=== PATIENT | female | born 2005 | race African-American/Black ===

== ENCOUNTER 2024-04-11 12:56 | Emergency (ER) | payer MEDICAID, OTHER, SELFPAY ==
[2024-04-11 12:56] VITALS: BP 113/74; PULSE 114; RESP 16; TEMP 36.9; O2SAT 100; BMI 21.9
[2024-04-11 13:58] VITALS: BP 109/75; PULSE 64; RESP 15; O2SAT 99
[2024-04-11 14:13] LABS: Amphetamine Urine NEGATIVE (<1000 ng/mL); Barbiturate Urine VISTA NEGATIVE (< 200 ng/mL); Benzodiazepine Urine VISTA NEGATIVE (< 200 ng/mL); Cocaine Urine VISTA NEGATIVE (< 300 ng/mL); Ecstacy Urine VISTA NEGATIVE (< 500 ng/mL); Methadone Urine VISTA NEGATIVE (< 300 ng/mL); PCP Urine VISTA NEGATIVE (< 25 ng/mL); THC Urine VISTA POSITIVE (< 50 ng/mL); Vista UDS pH Range 6
[2024-04-11 14:19] LABS: Alcohol, Blood (Medical)-Serum < 3.0 mg/dL
--- NOTE | 2024-04-11 14:22 | EX.ED.VIS.PS ---
HPI HPI - Psych History of Present Illness Chief Complaint: Suicidal Informant: patient Narrative Narrative: Patient presenting with suicidal thoughts/ideation, she does not have a specific plan but states I was going to go to my dorm and I have things there that I could do. She states the suicidal thoughts have been for the last month at least. She used to be on antidepressants, but she discontinued those 1 or 2 months ago because she thought they were making her feel nauseated. She is not going to therapy. She states she is very stressed, she feels like she has no free time, no ability to relax, due to school/college and work. [facility], and that is the reason she was referred here to the ER for this. PFSH PFSH Allergy/AdvReac Type Severity Reaction Status Date / Time No Known Allergies Allergy Verified 04/11/24 13:02 Social History Smoking Status: Never smoker ROS ROS ED Constitutional Constitutional ED: Denies chills or fever(s) Eyes Eyes: Denies change in vision or diplopia ENT ENT ED: Denies rhinorrhea or sore throat Cardiovascular Cardiovascular: Denies chest pain or palpitations Respiratory/Chest Respiratory/Chest: Denies cough or dyspnea Gastrointestinal Gastrointestinal: Denies abdominal pain, diarrhea, nausea or vomiting Genitourinary Genitourinary ED: Denies dysuria or hematuria Musculoskeletal Musculoskeletal: Denies back pain or neck pain Integumentary Denies abscess or rash Neurologic Neurologic: Denies headache(s), paresthesias or weakness Psychiatric Psychiatric: Reports depression, suicidal ideation and suicidal thoughts; Denies homicidal ideation EXAM Physical Exam Const Vital Signs: 04/11/24 12:56 04/11/24 13:58 Temperature 98.5 F Temperature Source Temporal Pulse Rate 114 H 64 Respiratory Rate 16 15 Blood Pressure 113/74 109/75 Blood Pressure Mean 87 86 Pulse Ox 100 99 Oxygen Delivery Method Room Air Room Air Positive well nourished and well developed General Appearance ED: well developed and NAD HEENT Reports moist mucous membranes normocephalic and atraumatic Eyes PERRL and EOMs intact bilaterally General Eye ED: Negative for scleral icterus Neck no lymphadenopathy and supple Resp normal respiratory effort and clear to auscultation bilaterally Cardio no murmurs Rate: regular rate Rhythm: regular rhythm GI non-tender and non-distended Auscultation: normoactive bowel sounds Palpation: soft Back/Spine no CVA tenderness and normal ROM Extremity normal to inspection General Extremety ED: Negative for edema General Extremity: Negative for edema Neuro oriented x3, CN's II-XII intact bilaterally, no sensory deficits noted and gait normal Sensorium / Orientation: alert Motor Exam: strength 5/5 throughout Psych mental status grossly normal, thought process normal, cooperative, activity/motor behavior normal and denies homicidal ideation Mood & Affect: depressed Thought Content: suicidality Skin Lesions: no lesions Rashes: no rashes MDM MDM MDM Narrative Medical decision making narrative: negative, alcohol negative, drug screen positive for cannabinoids which she admitted to she did not do any other illicit substances and denies taking any pills or anything else today. Her vital signs are normal she is well-appearing, cooperative, pleasant, she is medically cleared for psychiatric evaluation. Social work saw and evaluated the patient, and she actually does have more of a plan and then she lied on to me. She recommends placement. I think this is reasonable. Patient also given some ibuprofen for headache she has been having. Lab Data Attestation: I reviewed the patient's lab results. Labs: Laboratory Results - last 24 hr 04/11/24 04/11/24 13:44 13:53 Serum , Qual NEGATIVE Urine Opiates Screen NEGATIVE Urine Methadone Screen NEGATIVE Ur Barbiturates Screen NEGATIVE Ur Phencyclidine Scrn NEGATIVE Ur Amphetamines Screen NEGATIVE MDMA (Ecstasy) Screen NEGATIVE U Benzodiazepines Scrn NEGATIVE Urine Cocaine Screen NEGATIVE U Cannabinoids Screen POSITIVE H Ur Drug Screen Comment Ethyl Alcohol < 3.0 Management Discussion w/another healthcare provider: home health care social worker/Case management Discharge Plan Triage Chief Complaint: Suicidal ED Provider: Seamus Chacko Dx/Rx/DC Orders Clinical Impression: Suicidal ideation, Major depression, Noncompliance with medications Primary Care Provider: Care Physician,No Primary Referrals: Care Physician,No Primary [Primary Care Provider] - Print Language: Cook Islander Disposition Disposition: Psychiatric Hospital or Unit
[2024-04-11 14:24] LABS: Internal QC Validated? YES +Cl - CLEAR BKGD; Pregnancy, Serum, hCG Quali. NEGATIVE Negative
[2024-04-11 15:32] VITALS: RESP 16; O2SAT 93
[2024-04-11] MEDS: Ibuprofen 600 MG Tablet PO (15:44)
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
--- NOTE | 2024-04-11 17:27 | CM.ED ---
[facility] contacted and confirmed to have a female bed. Referral sent. contacted [facility], to update that patient is pending acceptance at an inpatient psychiatric hospital. Plan: Inpatient psychiatric hospitalization pending acceptance. Chelsie Stark, FUR GLAZER, CENTRIFUGE SEPARATOR TENDER
--- NOTE | 2024-04-11 19:33 | CM.ED ---
Social Work Patient was accepted to [facility]. Going to [facility] unit. Admitting physician Dr. Goodwin. N [phone]. [facility] slip faxed. Patient notified of accepting facility. NELLY Mathur, DRAWING SUPERVISOR
[2024-04-11 21:01] VITALS: BP 123/81; PULSE 72; RESP 16; TEMP 36.8; O2SAT 100
--- NOTE | 2024-04-11 23:29 | ED.RN ---
DUE TO PTS INSURANCE, OUTSOURCE HAS SO FAR BEEN UNSUCCESSFUL. PHYSICIANS IS TRYING TO OUTSOURCE TWO MORE PLACES. THEY DID NOT TELL ME WHAT PLACES. I REQUESTED THEY CONTINUE TO KEEP ME UPDATED.
[2024-04-11 23:30] VITALS: BP 98/65; PULSE 89; RESP 16; TEMP 36.8; O2SAT 100
== END 2024-04-12 01:11 ==
PROVIDERS: Emergency Provider Emergency Medicine; Visit Provider Emergency Medicine
DX: F32.9 Major depressive disorder, single episode, unspecified (principal); Z91.199 Patient's noncompliance with other medical treatment and regimen due to unspecified reason; R45.851 Suicidal ideations
CPT/HCPCS: 80307; 82077; 84703; 99284